=== PATIENT | male | born 1970 | race Caucasian/White ===

== ENCOUNTER 2023-10-01 11:19 | Outpatient (CLI) | payer OTHER, SELFPAY ==
[2023-10-01 20:02] LABS: Basophils # 0.1 K/mm3 (0-0.2); Basophils % 0.7 % (0.1-2.0); Eosinophils # 0.3 K/mm3 (0.0-0.4); Eosinophils % 4.1 % (0.1-12.0); Hematocrit 45.7 % (42.0-52.0); Hemoglobin 14.9 g/dL (14.1-18.0); Lymphocytes # 1.8 K/mm3 (0.7-4.5); Lymphocytes % 24.9 % (10-50); Mean Corpuscular HGB Conc 32.6 g/dL (31.8-35.4); Mean Corpuscular Hemoglobin 31.5 pg (27.0-31.2); Mean Corpuscular Volume 96.7 fl (80-94); Mean Platelet Volume 7.9 fl (7.4-10.4); Monocytes # 0.4 K/mm3 (0.1-1.0); Monocytes % 5.9 % (1.7-9.3); Neutrophils # 4.5 K/mm3 (1.8-7.8); Neutrophils % 64.3 % (37.0-80.0); Platelet Count 393 K/mm3 (142-424); Red Blood Count 4.73 M/mm3 (4.60-6.20); Red Cell Distribution Width 13.3 % (11.5-17.5)
[2023-10-01 20:05] LABS: Hemoglobin A1C 5.8 % (4.0-6.0)
[2023-10-01 20:06] LABS: Creatinine,Urine Random 71 mg/dL (Not Estab.)
[2023-10-01 20:09] LABS: Microalbumin < 6.000 mg/L (0-16.7)
[2023-10-01 20:11] LABS: Alanine Aminotransferase 30 U/L (12-78); Albumin Level 3.9 g/dl (3.5-5.0); Albumin/Globulin Ratio 1.2 (1.1-1.8); Alkaline Phosphatase 53 U/L (38-126); Anion Gap 8.1 mEq/L (5-15); Aspartate Amino Transferase 30 U/L (17-59); Bilirubin,Total 0.4 mg/dl (0.2-1.3); Blood Urea Nitrogen 13 mg/dl (9-20); Calcium 9.1 mg/dl (8.4-10.2); Carbon Dioxide 27 mmol/L (22.0-30.0); Chloride 106 mmol/L (98-107); Chol/HDL Ratio 4.6 (1-3.5); Cholesterol 226 mg/dl (140-200); Estimated Glomerular Filt Rate 118 ml/min (>60); GFR (African American) 143 ML/MIN (>60); Globulin 3.3 g/dL (1.3-3.2); Glucose 112 mg/dl (74-100); HDL Cholesterol 49 mg/dl (40-60); Potassium 4.1 mmoL/L (3.5-5.1); Sodium 137 mmol/L (136-145); Total Protein,Serum 7.2 g/dl (6.3-8.2); Triglycerides 270 mg/dl (30-150); Uric Acid 6.3 mg/dl (3.5-8.5); VLDL Cholesterol 54 mg/dL (0-40)
[2023-10-01 20:22] LABS: C-Reactive Protein 1.1 mg/L (0-4); Direct LDL Cholesterol 132.45 mg/dL (100-129)
[2023-10-01 20:30] LABS: 25-OH Vitamin D, Total 13.3 ng/mL (30-100)
[2023-10-01 20:43] LABS: Prostate Specific Ag Screen 0.5 ng/ml (0.0-4.0); Thyroid Stimulating Hormone 1.73 uIU/mL (0.465-4.68)
[2023-10-01 21:00] LABS: Vitamin B12 420 pg/mL (239-931)
[2023-10-01 21:09] LABS: Erythrocyte Sedimentation Rate 13 mm/hr (0-20)
[2023-10-03 10:11] LABS: Testosterone,Total 209 ng/dL (264-916)
[2023-10-03 11:14] LABS: RA Latex Turbid. 13.7 IU/mL (<14.0)
[2023-10-05 14:22] LABS: Anti-Centromere B Antibodies <0.2 AI (0.0-0.9); Anti-DNA (DS) Ab Qn <1 IU/mL (0-9); Anti-Jo-1 <0.2 AI (0.0-0.9); Anti-Smith Antibody <0.2 AI (0.0-0.9); Antichromatin Antibodies <0.2 AI (0.0-0.9); Antiscleroderma-70 Antibodies <0.2 AI (0.0-0.9); RNP Antibodies 0.3 AI (0.0-0.9); Sjogren's Anti-SS-A <0.2 AI (0.0-0.9); Sjogren's Anti-SS-B <0.2 AI (0.0-0.9)
[2023-10-06 09:22] LABS: Antinuclear Antibodies, IFA Negative (.)
== END 2023-10-01 23:59 | disposition home or self-care (01) ==
LOC: LAB.DROPOF 10-02 11:19
PROVIDERS: PCP Nurse Practitioner; Visit Provider Nurse Practitioner
DX: I10 Essential (primary) hypertension (principal); E78.5 Hyperlipidemia, unspecified; K21.9 Gastro-esophageal reflux disease without esophagitis; R53.83 Other fatigue; R51.9 Headache, unspecified; Z12.5 Encounter for screening for malignant neoplasm of prostate; H53.9 Unspecified visual disturbance; R06.83 Snoring
CPT/HCPCS: 80050; 80053; 80061; 82043; 82306; 82570; 82607; 83036; 84403; 84443; 84550; 85025; 85651; 86038; 86140; 86225; 86235; 86431; G0103